=== PATIENT | male | born 1995 | race Caucasian/White ===

== ENCOUNTER 2021-03-26 17:49 | Emergency (ER) | payer BC ==
[~2021-03-26] VITALS: Ht 177.8 cm; Wt 61.4 kg
[2021-03-26 18:03] VITALS: TEMP 97.7
[2021-03-26 18:40] LABS: BASO % 0.4 % (0.0-2.0); EOS # 0.1 (0.0-0.7); EOS % 1.6 % (0-4.0); GRAN # 5.2 (1.4-6.5); HEMATOCRIT 49.5 % (42.0-52.0); HEMOGLOBIN 17.4 g/dl (13.5-18.0); MEAN CELL VOLUME 90 fl (80.0-100.0); MEAN CORPUSCULAR HEMOGLOBIN 32 pg (27.0-31.0); MEAN CORPUSCULAR HGB CONC 35 g/dl (33.0-37.0); MONO # 0.7 (0.1-0.6); MONO % 8.8 % (1.7-9.3); PLATELET COUNT 224 K/mm3 (130-400); RED BLOOD COUNT 5.51 M/mm3 (4.20-5.60); REDCELL DISTRIBUTION WIDTH-CV 11.9 % (11.5-14.5)
[2021-03-26 19:04] LABS: ALBUMIN 5.1 gm/dL (3.5-5.0); BILIRUBIN,TOTAL 1.1 mg/dL (0.0-1.0); CREATININE, serum 0.71 (0.66-1.25); POTASSIUM 4.1 mmol/L (3.4-5.0)
[2021-03-26 19:39] LABS: INR 1.1 (0.8-3.0); PROTHROMBIN TIME 12.4 SECONDS (9.7-12.8)
[2021-03-26 19:42] LABS: PARTIAL THROMBOPLASTIN TIME 32.8 SECONDS (26.0-37.0)
[2021-03-26 21:30] LABS: TROPONIN-I 15.3 ng/mL (0.000-0.035)
[2021-03-26 23:22] VITALS: BP 133/76; PULSE 80
== END 2021-03-26 23:22 | disposition short-term general hospital (02) ==
LOC: COL.ER 17:49 → SURG 20:38 → COL.ER 23:22
PROVIDERS: Emergency Medicine
DX: I30.1 Infective pericarditis (principal); Z20.822 Contact with and (suspected) exposure to COVID-19
CPT/HCPCS: 99223-AI; J7030